=== PATIENT | female | born 1960 | race Caucasian/White ===

== ENCOUNTER 2019-11-22 07:07 | Outpatient (CLI) | payer OTHER, SELFPAY ==
[2019-11-22 08:03] LABS: Hematocrit 46.3 % (37.0-47.0); Hemoglobin 14.8 g/dL (12.0-15.0); Mean Corpuscular Hemoglobin 28.3 pg (26-34); Mean Corpuscular Volume 88.5 fl (80-100); Mean Platelet Volume 10.5 fl (7.4-10.4); Platelet Count Result 299 k/mm3 (150-375); Red Blood Count 5.23 M/mm3 (4.2-5.4); Red Cell Distribution Width 12.9 % (11.5-14.5); White Blood Count 8.5 K/mm3 (4.5-10.0)
[2019-11-22 08:18] LABS: Alanine Aminotransferase 24 U/L (4-35); Albumin Level 4.3 g/dL (3.5-5.1); Alkaline Phosphatase 94 U/L (38-126); Aspartate Amino Transferase 25 U/L (14-36); Bilirubin,Total 0.6 mg/dL (0.2-1.3); Blood Urea Nitrogen 14 mg/dL (7-17); Calcium 9.4 mg/dL (8.4-10.2); Carbon Dioxide 25 mmol/L (22-30); Chloride 104 mmol/L (98-107); Cholesterol 236 mg/dL (0-200); Estimated Glomerular Filt Rate > 60; Glucose 84 mg/dL (65-105); HDL Direct 46 mg/dL; Sodium 143 mmol/L (137-145); Triglycerides 161 mg/dL (<150)
[2019-11-22 08:25] LABS: Free T4 Free Thyroxine 0.91 ng/mL (0.78-2.19); Vitamin D 25 Hydroxy 38.8 ng/mL
[2019-11-22 08:29] LABS: LDL Cholesterol Direct 170 mg/dL
== END 2019-11-22 07:08 | disposition home or self-care (01) ==
PROVIDERS: PCP Family Medicine; Visit Provider Family Medicine
DX: E78.5 Hyperlipidemia, unspecified (principal); E55.9 Vitamin D deficiency, unspecified; R00.2 Palpitations
CPT/HCPCS: 36415; 80053; 80061; 82306; 84439; 84443; 85027

== ENCOUNTER 2020-06-17 06:55 | Outpatient (CLI) | payer BC, SELFPAY ==
[2020-06-17 07:28] LABS: Alanine Aminotransferase 30 U/L (4-35); Albumin Level 4.3 g/dL (3.5-5.1); Alkaline Phosphatase 91 U/L (38-126); Anion Gap 8 mmol/L (8-16); Aspartate Amino Transferase 26 U/L (14-36); Bilirubin,Total 0.5 mg/dL (0.2-1.3); Blood Urea Nitrogen 13 mg/dL (7-17); Calcium 9.3 mg/dL (8.4-10.2); Carbon Dioxide 24 mmol/L (22-30); Chloride 106 mmol/L (98-107); Cholesterol 223 mg/dL (0-200); Estimated Glomerular Filt Rate > 60; Glucose 101 mg/dL (65-105); HDL Direct 39 mg/dL; Sodium 138 mmol/L (137-145); Triglycerides 169 mg/dL (<150)
[2020-06-17 07:39] LABS: LDL Cholesterol Direct 150 mg/dL
[2020-06-17 08:06] LABS: Potassium 4.3 mmol/L (3.4-5.0)
[2020-06-17 08:10] LABS: Vitamin D 25 Hydroxy 39.4 ng/mL
== END 2020-06-17 06:56 | disposition home or self-care (01) ==
PROVIDERS: PCP Family Medicine; Visit Provider Family Medicine
DX: G62.9 Polyneuropathy, unspecified (principal); R00.2 Palpitations; E78.2 Mixed hyperlipidemia; E55.9 Vitamin D deficiency, unspecified
CPT/HCPCS: 36415; 80053; 80061; 82306; 82607; 84443

== ENCOUNTER 2020-12-22 06:45 | Outpatient (CLI) | payer BC, SELFPAY ==
[2020-12-22 07:46] LABS: Alanine Aminotransferase 31 U/L (4-35); Albumin Level 4.6 g/dL (3.5-5.1); Alkaline Phosphatase 101 U/L (38-126); Anion Gap 9 mmol/L (8-16); Aspartate Amino Transferase 30 U/L (14-36); Bilirubin,Total 0.7 mg/dL (0.2-1.3); Blood Urea Nitrogen 15 mg/dL (7-17); Calcium 9.7 mg/dL (8.4-10.2); Carbon Dioxide 27 mmol/L (22-30); Chloride 105 mmol/L (98-107); Cholesterol 221 mg/dL (0-200); Estimated Glomerular Filt Rate > 60; Glucose 95 mg/dL (65-105); HDL Direct 43 mg/dL; Sodium 141 mmol/L (137-145); Triglycerides 180 mg/dL (<150)
[2020-12-22 07:57] LABS: LDL Cholesterol Direct 146 mg/dL
== END 2020-12-22 06:46 | disposition home or self-care (01) ==
PROVIDERS: PCP Family Medicine; Visit Provider Family Medicine
DX: Z00.00 Encounter for general adult medical examination without abnormal findings (principal)
CPT/HCPCS: 36415; 80053; 80061

== ENCOUNTER → 2021-03-19 06:32 | Outpatient (CLI) | payer BC, SELFPAY ==
[2021-03-19 18:47] LABS: SARS-CoV-2 RNA PCR Negative
== END ==
PROVIDERS: PCP Family Medicine; Visit Provider Physician Assistant
DX: R05 Cough (principal); Z20.822 Contact with and (suspected) exposure to COVID-19
CPT/HCPCS: C9803; U0003; U0005

== ENCOUNTER 2021-07-03 07:17 | Outpatient (CLI) | payer BC, SELFPAY ==
[2021-07-03 08:02] LABS: Hemoglobin 15.3 g/dL (12.0-15.0); Mean Corpuscular HGB Conc 33.3 g/dl (32-36); Mean Corpuscular Hemoglobin 29.4 pg (26-34); Mean Corpuscular Volume 88.5 fl (80-100); Mean Platelet Volume 10.3 fl (7.4-10.4); Platelet Count Result 296 k/mm3 (150-375); Red Cell Distribution Width 13.2 % (11.5-14.5); White Blood Count 7.9 K/mm3 (4.5-10.0)
[2021-07-03 08:15] LABS: Alanine Aminotransferase 24 U/L (4-35); Albumin Level 4.7 g/dL (3.5-5.1); Alkaline Phosphatase 109 U/L (38-126); Anion Gap 9 mmol/L (8-16); Aspartate Amino Transferase 27 U/L (14-36); Bilirubin,Total 0.4 mg/dL (0.2-1.3); Blood Urea Nitrogen 12 mg/dL (7-17); Calcium 9.3 mg/dL (8.4-10.2); Carbon Dioxide 24 mmol/L (22-30); Chloride 108 mmol/L (98-107); Cholesterol 214 mg/dL (0-200); Estimated Glomerular Filt Rate > 60; Glucose 89 mg/dL (65-110); HDL Direct 51 mg/dL; Potassium 4.1 mmol/L (3.4-5.0); Sodium 141 mmol/L (137-145); Triglycerides 124 mg/dL (<150)
[2021-07-03 08:26] LABS: LDL Cholesterol Direct 132 mg/dL
[2021-07-03 08:45] LABS: Vitamin D 25 Hydroxy 48.8 ng/mL
== END 2021-07-03 07:18 | disposition home or self-care (01) ==
PROVIDERS: PCP Family Medicine; Visit Provider Family Medicine
DX: E55.9 Vitamin D deficiency, unspecified (principal); I10 Essential (primary) hypertension; R53.83 Other fatigue; E78.2 Mixed hyperlipidemia
CPT/HCPCS: 36415; 80053; 80061; 82306; 84443; 85027

== ENCOUNTER 2022-01-26 07:22 | Outpatient (CLI) | payer BC, SELFPAY ==
[2022-01-26 08:02] LABS: Hematocrit 46.2 % (37.0-47.0); Hemoglobin 14.9 g/dL (12.0-15.0); Mean Corpuscular HGB Conc 32.3 g/dl (32-36); Mean Corpuscular Hemoglobin 29.3 pg (26-34); Mean Corpuscular Volume 90.9 fl (80-100); Mean Platelet Volume 9.8 fl (7.4-10.4); Platelet Count Result 282 k/mm3 (150-375); Red Blood Count 5.08 M/mm3 (4.2-5.4); Red Cell Distribution Width 12.5 % (11.5-14.5); White Blood Count 8.3 K/mm3 (4.5-10.0)
[2022-01-26 08:16] LABS: Alanine Aminotransferase 19 U/L (4-35); Albumin Level 4.5 g/dL (3.5-5.1); Alkaline Phosphatase 108 U/L (38-126); Anion Gap 8 mmol/L (8-16); Aspartate Amino Transferase 23 U/L (14-36); Bilirubin,Total 0.3 mg/dL (0.2-1.3); Blood Urea Nitrogen 13 mg/dL (7-17); Calcium 8.9 mg/dL (8.4-10.2); Carbon Dioxide 26 mmol/L (22-30); Chloride 107 mmol/L (98-107); Cholesterol 236 mg/dL (0-200); Estimated Glomerular Filt Rate > 60; Glucose 86 mg/dL (65-110); HDL Direct 52 mg/dL; Potassium 4.2 mmol/L (3.4-5.0); Sodium 141 mmol/L (137-145); Triglycerides 148 mg/dL (<150)
[2022-01-26 08:26] LABS: LDL Cholesterol Direct 133 mg/dL
[2022-01-26 08:33] LABS: Vitamin D 25 Hydroxy 49.9 ng/mL
== END 2022-01-26 07:23 | disposition home or self-care (01) ==
LOC: ANHLAB 07:23
PROVIDERS: PCP Family Medicine; Visit Provider Family Medicine
DX: E55.9 Vitamin D deficiency, unspecified (principal); R53.83 Other fatigue; I10 Essential (primary) hypertension; E78.2 Mixed hyperlipidemia; E03.9 Hypothyroidism, unspecified
CPT/HCPCS: 36415; 80053; 80061; 82306; 84443; 85027

== ENCOUNTER 2022-03-25 11:01 | Outpatient (CLI) | payer BC, SELFPAY ==
--- NOTE | ~2022-03-25 | XR_ITS ---
XR hand LT min 3V DATE: 03/25/2022 11:26 INDICATION: Pain, trigger thumb TECHNIQUE: 3 views COMPARISON: left hand FINDINGS: There is moderate osteoarthritis at the first carpometacarpal joint. There is mild osteoart hritis at the second metacarpophalangeal joint and multiple interphalangeal joints. No fracture, dislocation, periosteal reaction or bone destruction. No erosive change. IMPRESSION: Mild polyarticular osteoarthritis Reviewed, dictated and finalized at location A.
[2022-03-25 12:11] LABS: Rheumatoid Factor < 8.6 IU/ML (<12)
[2022-03-25 13:11] LABS: Erythrocyte Sedimentation Rate 13 mm/hr (0-20)
== END 2022-03-25 11:02 | disposition home or self-care (01) ==
LOC: ANHLAB 11:04
PROVIDERS: PCP Family Medicine; Visit Provider Physician Assistant
DX: M25.50 Pain in unspecified joint (principal); M19.042 Primary osteoarthritis, left hand
CPT/HCPCS: 36415; 73130; 85652; 86430

== ENCOUNTER 2022-07-14 06:43 | Outpatient (CLI) | payer BC, SELFPAY ==
[2022-07-14 08:02] LABS: Alanine Aminotransferase 27 U/L (6-35); Albumin Level 4.7 g/dL (3.5-5.1); Alkaline Phosphatase 115 U/L (38-126); Anion Gap 11 mmol/L (8-16); Aspartate Amino Transferase 24 U/L (14-36); Bilirubin,Total 0.3 mg/dL (0.2-1.3); Blood Urea Nitrogen 16 mg/dL (7-17); Calcium 9.3 mg/dL (8.4-10.2); Carbon Dioxide 25 mmol/L (22-30); Chloride 106 mmol/L (98-107); Cholesterol 251 mg/dL (0-200); Estimated Glomerular Filt Rate > 60; Glucose 94 mg/dL (65-110); HDL Direct 52 mg/dL; Potassium 4.1 mmol/L (3.4-5.0); Sodium 142 mmol/L (137-145); Triglycerides 197 mg/dL (<150)
[2022-07-14 08:13] LABS: LDL Cholesterol Direct 151 mg/dL
== END 2022-07-14 06:44 | disposition home or self-care (01) ==
LOC: ANHLAB 06:45
PROVIDERS: PCP Family Medicine; Visit Provider Physician Assistant
DX: Z13.220 Encounter for screening for lipoid disorders (principal); Z13.1 Encounter for screening for diabetes mellitus
CPT/HCPCS: 36415; 80053; 80061

== ENCOUNTER 2023-02-15 07:01 | Outpatient (CLI) | payer BC, SELFPAY ==
[2023-02-15 09:10] LABS: Basophils Percent Auto 0.5 % (0.2-1.2); Eosinophils Absolute Auto 0.1 K/mm3 (0-0.3); Eosinophils Percent Auto 1.1 % (0-4.4); Hematocrit 45.9 % (37.0-47.0); Hemoglobin 14.9 g/dL (12.0-15.0); Immature Granulocyte Absolute 0.03 K/mm3 (0.00-0.031); Immature Granulocyte Percent A 0.4 % (0-0.5); Lymphocytes Absolute Auto 2.38 K/mm3 (0.9-3.2); Lymphocytes Percent Auto 28.1 % (18.3-44.2); Mean Corpuscular HGB Conc 32.5 g/dl (32-36); Mean Corpuscular Hemoglobin 28.8 pg (26-34); Mean Corpuscular Volume 88.8 fl (80-100); Mean Platelet Volume 10.3 fl (7.4-10.4); Monocytes Absolute Auto 0.5 K/mm3 (0.1-0.6); Monocytes Percent Auto 5.7 % (2.6-8.5); Neutrophils Absolute Auto 5.5 K/mm3 (1.3-6.7); Neutrophils Percent Auto 64.2 % (45.5-73.1); Platelet Count Result 283 k/mm3 (150-375); Red Blood Count 5.17 M/mm3 (4.2-5.4); Red Cell Distribution Width 12.4 % (11.5-14.5); White Blood Count 8.5 K/mm3 (4.5-10.0)
[2023-02-15 09:24] LABS: Alanine Aminotransferase 28 U/L (6-35); Albumin Level 4.5 g/dL (3.5-5.1); Alkaline Phosphatase 113 U/L (38-126); Anion Gap 9 mmol/L (8-16); Aspartate Amino Transferase 27 U/L (14-36); Bilirubin,Total 0.4 mg/dL (0.2-1.3); Blood Urea Nitrogen 15 mg/dL (7-17); Calcium 9.1 mg/dL (8.4-10.2); Carbon Dioxide 27 mmol/L (22-30); Chloride 104 mmol/L (98-107); Cholesterol 259 mg/dL (0-200); Estimated Glomerular Filt Rate > 60; Glucose 82 mg/dL (65-110); HDL Direct 53 mg/dL; Potassium 3.9 mmol/L (3.4-5.0); Sodium 140 mmol/L (137-145); Triglycerides 140 mg/dL (<150)
[2023-02-15 09:35] LABS: LDL Cholesterol Direct 174 mg/dL
[2023-02-15 09:43] LABS: Vitamin D 25 Hydroxy 31.9 ng/mL
== END 2023-02-15 07:02 | disposition home or self-care (01) ==
LOC: ANHLAB 07:03
PROVIDERS: PCP Family Medicine; Visit Provider Family Medicine
DX: Z00.00 Encounter for general adult medical examination without abnormal findings (principal); R53.83 Other fatigue; E78.2 Mixed hyperlipidemia; I10 Essential (primary) hypertension; E55.9 Vitamin D deficiency, unspecified
CPT/HCPCS: 36415; 80053; 80061; 82306; 84443; 85025

== ENCOUNTER 2023-08-09 06:56 | Outpatient (CLI) | payer BC, SELFPAY ==
[2023-08-09 07:54] LABS: Hematocrit 48.2 % (37.0-47.0); Hemoglobin 15.3 g/dL (12.0-15.0); Mean Corpuscular HGB Conc 31.7 g/dl (32-36); Mean Corpuscular Hemoglobin 28.4 pg (26-34); Mean Corpuscular Volume 89.6 fl (80-100); Mean Platelet Volume 10.2 fl (7.4-10.4); Platelet Count Result 289 k/mm3 (150-375); Red Blood Count 5.38 M/mm3 (4.2-5.4); Red Cell Distribution Width 12.9 % (11.5-14.5); White Blood Count 9.2 K/mm3 (4.5-10.0)
[2023-08-09 08:08] LABS: Alanine Aminotransferase 24 U/L (6-35); Albumin Level 4.5 g/dL (3.5-5.1); Alkaline Phosphatase 113 U/L (38-126); Anion Gap 9 mmol/L (8-16); Aspartate Amino Transferase 25 U/L (14-36); Bilirubin,Total 0.5 mg/dL (0.2-1.3); Blood Urea Nitrogen 13 mg/dL (7-17); Calcium 9.4 mg/dL (8.4-10.2); Carbon Dioxide 26 mmol/L (22-30); Chloride 105 mmol/L (98-107); Cholesterol 255 mg/dL (0-200); Estimated Glomerular Filt Rate > 60; Glucose 87 mg/dL (65-110); HDL Direct 49 mg/dL; Potassium 4.1 mmol/L (3.4-5.0); Sodium 140 mmol/L (137-145); Triglycerides 194 mg/dL (<150)
[2023-08-09 08:19] LABS: LDL Cholesterol Direct 158 mg/dL
[2023-08-09 13:24] LABS: Iron 122 ug/dL (37-170)
[2023-08-09 13:33] LABS: Percent Iron Saturation 33 % (20-50)
== END 2023-08-09 06:57 | disposition home or self-care (01) ==
LOC: ANHLAB 06:57
PROVIDERS: Physician Assistant; PCP Family Medicine; Visit Provider Family Medicine
DX: R53.83 Other fatigue (principal); I10 Essential (primary) hypertension; D75.1 Secondary polycythemia; E78.2 Mixed hyperlipidemia
CPT/HCPCS: 36415; 80053; 80061; 82728; 83540; 83550; 84443; 85027

== ENCOUNTER 2024-01-19 06:43 | Outpatient (CLI) | payer BC, SELFPAY ==
[2024-01-19 07:34] LABS: Basophils Percent Auto 0.4 % (0.2-1.2); Eosinophils Absolute Auto 0.2 K/mm3 (0-0.3); Eosinophils Percent Auto 1.6 % (0-4.4); Hematocrit 46.5 % (37.0-47.0); Hemoglobin 15.1 g/dL (12.0-15.0); Immature Granulocyte Absolute 0.03 K/mm3 (0.00-0.031); Immature Granulocyte Percent A 0.3 % (0-0.5); Lymphocytes Absolute Auto 2.22 K/mm3 (0.9-3.2); Lymphocytes Percent Auto 24.1 % (18.3-44.2); Mean Corpuscular HGB Conc 32.5 g/dl (32-36); Mean Corpuscular Hemoglobin 28.9 pg (26-34); Mean Corpuscular Volume 88.9 fl (80-100); Mean Platelet Volume 10.1 fl (7.4-10.4); Monocytes Absolute Auto 0.5 K/mm3 (0.1-0.6); Neutrophils Absolute Auto 6.3 K/mm3 (1.3-6.7); Neutrophils Percent Auto 68.6 % (45.5-73.1); Platelet Count Result 301 k/mm3 (150-375); Red Blood Count 5.23 M/mm3 (4.2-5.4); Red Cell Distribution Width 12.5 % (11.5-14.5); White Blood Count 9.2 K/mm3 (4.5-10.0)
[2024-01-19 07:42] LABS: Alanine Aminotransferase 21 U/L (6-35); Albumin Level 4.5 g/dL (3.5-5.1); Alkaline Phosphatase 113 U/L (38-126); Anion Gap 6 mmol/L (4-12); Aspartate Amino Transferase 21 U/L (14-36); Bilirubin,Total 0.4 mg/dL (0.2-1.3); Blood Urea Nitrogen 11 mg/dL (7-17); Calcium 9.3 mg/dL (8.4-10.2); Carbon Dioxide 26 mmol/L (22-30); Chloride 109 mmol/L (98-107); Cholesterol 209 mg/dL (0-200); Estimated Glomerular Filt Rate > 60; Glucose 98 mg/dL (65-110); HDL Direct 48 mg/dL; Sodium 141 mmol/L (137-145); Triglycerides 203 mg/dL (<150)
[2024-01-19 07:45] LABS: Iron 105 ug/dL (37-170)
[2024-01-19 07:54] LABS: LDL Cholesterol Direct 128 mg/dL
[2024-01-19 07:59] LABS: Percent Iron Saturation 30 % (20-50)
== END 2024-01-19 06:44 | disposition home or self-care (01) ==
LOC: ANHLAB 06:45
PROVIDERS: PCP Family Medicine; Visit Provider Family Medicine
DX: E78.2 Mixed hyperlipidemia (principal); I10 Essential (primary) hypertension; D58.2 Other hemoglobinopathies
CPT/HCPCS: 36415; 80053; 80061; 82728; 83540; 83550; 85025

== ENCOUNTER 2024-06-14 06:58 | Outpatient (CLI) | payer MEDICARE, SELFPAY ==
[2024-06-14 07:50] LABS: Basophils Percent Auto 0.5 % (0.2-1.2); Eosinophils Absolute Auto 0.1 K/mm3 (0-0.3); Eosinophils Percent Auto 1.3 % (0-4.4); Hematocrit 46.5 % (37.0-47.0); Hemoglobin 15.2 g/dL (12.0-15.0); Immature Granulocyte Absolute 0.03 K/mm3 (0.00-0.031); Immature Granulocyte Percent A 0.4 % (0-0.5); Lymphocytes Absolute Auto 2.17 K/mm3 (0.9-3.2); Lymphocytes Percent Auto 25.5 % (18.3-44.2); Mean Corpuscular HGB Conc 32.7 g/dl (32-36); Mean Corpuscular Hemoglobin 28.8 pg (26-34); Mean Corpuscular Volume 88.2 fl (80-100); Mean Platelet Volume 9.9 fl (7.4-10.4); Monocytes Absolute Auto 0.5 K/mm3 (0.1-0.6); Neutrophils Absolute Auto 5.6 K/mm3 (1.3-6.7); Neutrophils Percent Auto 66.3 % (45.5-73.1); Platelet Count Result 292 k/mm3 (150-375); Red Blood Count 5.27 M/mm3 (4.2-5.4); Red Cell Distribution Width 12.4 % (11.5-14.5); White Blood Count 8.5 K/mm3 (4.5-10.0)
[2024-06-14 08:38] LABS: Alanine Aminotransferase 22 U/L (6-35); Albumin Level 4.2 g/dL (3.5-5.1); Alkaline Phosphatase 103 U/L (38-126); Anion Gap 12 mmol/L (4-12); Aspartate Amino Transferase 24 U/L (14-36); Bilirubin,Total 0.3 mg/dL (0.2-1.3); Blood Urea Nitrogen 13 mg/dL (7-17); Calcium 8.8 mg/dL (8.4-10.2); Carbon Dioxide 24 mmol/L (22-30); Chloride 103 mmol/L (98-107); Cholesterol 218 mg/dL (0-200); Estimated Glomerular Filt Rate > 60; Glucose 83 mg/dL (65-110); HDL Direct 44 mg/dL; LDL Cholesterol Direct 135 mg/dL; Sodium 139 mmol/L (137-145); Triglycerides 205 mg/dL (<150)
== END 2024-06-14 06:59 | disposition home or self-care (01) ==
LOC: ANHLAB 07:07
PROVIDERS: PCP Family Medicine; Visit Provider Family Medicine
DX: R71.8 Other abnormality of red blood cells (principal); E78.2 Mixed hyperlipidemia; I10 Essential (primary) hypertension
CPT/HCPCS: 36415; 80053; 80061; 85025

== ENCOUNTER → 2024-08-06 09:06 | Outpatient (REF) | payer MEDICARE, SELFPAY | LOC: ANHLAB 09:06 | PROVIDERS: PCP Family Medicine; Visit Provider Plastic Surgery | DX: D48.5 Neoplasm of uncertain behavior of skin (principal) | CPT/HCPCS: 88305 ==

== ENCOUNTER 2025-02-26 06:53 | Outpatient (CLI) | payer MEDICARE, SELFPAY ==
--- OUTSIDE RECORDS SUMMARY | 2025-02-26 06:56 | XMS_ITS | Continuity of Care Document ---
Author Organization [employer] [place] Address [address] [facility] [address] [place] [address] Phone Care Team Providers Care Obstetrics Specialist Name Role Phone Xander Sanchez Unavailable Unavailable Procedures Procedure Date Progress Note Therapeutic Activities Neuromuscular Re-Ed Therapeutic Exercise Therapeutic Activities Neuromuscular Re-Ed Therapeutic Exercise Therapeutic Activities Neuromuscular Re-Ed Therapeutic Exercise Manual Therapy Hot or Cold Pack Electrical Stimulation Therapeutic Activities Neuromuscular Re-Ed Therapeutic Exercise Therapeutic Activities Neuromuscular Re-Ed Therapeutic Exercise Doc neg elder mal no plan PT Evaluation Moderate Complexity Therapeutic Activities Neuromuscular Re-Ed Therapeutic Exercise Therapeutic Activities Neuromuscular Re-Ed Therapeutic Exercise Manual Therapy Hot or Cold Pack Electrical Stimulation Therapeutic Activities Neuromuscular Re-Ed Therapeutic Exercise Manual Therapy Hot or Cold Pack Neuromuscular Re-Ed Therapeutic Exercise Hot or Cold Pack Manual Therapy Hot or Cold Pack Therapeutic Exercise Neuromuscular Re-Ed Therapeutic Activities Electrical Stimulation Neuromuscular Re-Ed Therapeutic Activities PT Evaluation Low Complexity Therapeutic Exercise Advance Directives Directive Yes / No Effective Date File Name No Information Encounters Encounter Description Practice Location Reason(s) For Visit Diagnoses Date Provider Providers Copied on Encounter [address], [id number], tel:[phone] [place] No Information 4 Muehl Xander. [address] [facility], [facility] [address] [address], . tel: [phone] [address], [id number], tel:[phone] [place] No Information 4 Muehl Xander. [address] [facility], [address] [address], [place]. tel:[phone] Referring Provider: Karel Madrid, [facility] [address] [place] [address], [facility]. tel:[phone] [address], [place], [id number], tel:[phone] [place] No Information 4 Muehl Xander. [address] [facility], [address], [place], [facility], . tel:[phone] Referring Provider: Karel Madrid, [facility] [address] [place] [address] [place] [address], [facility]. tel:[phone] [address], [place], [id number], tel:[phone] [place] No Information 4 Muehl Xander. [address] [facility], [address], . tel:[phone] Referring Provider: Karel Madrid, [facility] [address] [place] [address] [place] [address], [address]. tel:[phone] [address] [place] [address], [id number], tel:[phone] [place] No Information 0 4 Santi Terrell. [address] [place] [address], [address], [place], [facility], . tel:[phone] Referring Provider: Karel Madrid, [facility] [address] [place] [address] [place] [address], [facility]. tel:[phone] [address], [id number], tel:[phone] [place] No Information 3 Santi Terrell. [address] [place] [address], [address], [place], [facility], . [phone] Referring Provider: Karel Madrid, [facility] [address] [place] [address] Suite [facility], [place], [address]. tel:[phone] [address], [id number], tel:[phone] [place] No Information 3 Santi Terrell. [address] [place] [address], [address], [place], [facility], . tel:[phone] Referring Provider: Karel Madrid, [facility] [address] [place] [address] [address], [address]. tel:[phone] [address] [place] [address], [id number], tel:[phone] [place] No Information 2 0 Jose G Rainey. . Referring Provider: Melodie Santos, [address] , [place], [address]. tel:[phone] [address], [id number], tel:[phone] [place] No Information 0 Muehl Xander. [address] [place] [address], [address], [place], [facility], . tel:[phone] Referring Provider: [address], [place], [address]. tel:[phone] [address] [place] [address], [id number], tel:[phone] [place] No Information 0 Muehl Xander. [address] [place] [address], [address], [place], [facility], . [phone] Referring Provider: [address], [place], [address]. tel:[phone] [address] [place] [address] [place] [address], [id number], tel:[phone] [place] No Information 0 Jose G Rainey. . Referring Provider: [address], [place], [address]. tel:[phone] [address] [place] [address], [id number], tel:[phone] [place] No Information 0 Jose G Rainey. . Referring Provider: [address], [place], [address]. tel:[phone] Family History Family Member Type Diagnosis Age At Onset No Information Payers Payer name Insurance type Covered alliance party ID John elder(s) [facility] [id number] Social History Type Description Quantity Date Captured Comments Sex Female Smoking Status No Information Chief Complaint And Reason For Visit No Information Reason For Referral Reason For Referral No Information Plan Of Treatment Date Type Action Status Referral Ordered: Weight management: Patient referral to PCP timeframe: 1 Month. (related to Overweight) ordered Referral Ordered: Weight management: Referral to physician timeframe: 1 Month (related to Overweight) ordered Referral Ordered: PCP timeframe: 1 week. (related to Overweight) ordered Referral Ordered: PCP timeframe: 1 week. (related to Overweight) ordered Referral Ordered: Weight management: Patient referral to PCP timeframe: 1 Month. (related to Overweight) ordered History Of Present Illness Encounter Date Complaint History Of Prese nt Illness No Information Functional Status Date Functional Assessmen t No Information Instructions Date Instruction Additional Infor mation Prescribed activity/exercise edu cation Related to Overweight Dietary needs education Related to Overweight Assessments Type Assessment Date No Information Patient Care Teams Name Effective Dates (start - stop) Status Members No Information
--- OUTSIDE RECORDS SUMMARY | 2025-02-26 06:57 | XMS_ITS | Referral Summary ---
Author Organization [facility] Address [address] [place] [address] Care Team Providers Care Ammunition Officer Name Role Phone Melodie Santos MD Primary Care Provider [phone] Allergies Active Allergy Reactions Criticality Noted Date Comments Lorazepam Other (See comments) Low 03/11/2021 Adverse reaction Ciprofloxacin Other (See comments) Low 03/11/2021 Adverse reaction Ciprofloxacin Hcl Other (See comments) Low 03/11/20 Adverse reaction Duloxetine Other (See comments) Low 03/11/2021 Adverse reaction Nifedipine Headache Low 04/20/2023 Penicillins Other (See comments) Low 03/11/2021 Mouth swelling Spironolactone Palpitations Low 03/11/2021 Rapid heartbeat, throwing up, headache, & nausea Medications dilTIAZem (CARDIZEM) 30 mg tablet Take 1 tablet (30 mg total) by mouth 3 (three) times a day 1 Active diazePAM (VALIUM) 5 mg tablet TAKE 1 TABLET BY MOUTH ONCE DAILY NEEDED FOR ANXIETY 1 Active montelukast (SINGULAIR) 10 mg tablet Take 1 tablet (10 mg total) by mouth daily 1 Active pravastatin (PRAVACHOL) 10 mg tablet Take 1 tablet (10 mg total) by mouth daily 1 Active CHOLECALCIFEROL , VITAMIN D3, ORAL Take 2,000 Units by mouth once a week Active cyanocobalamin (Vitamin B-12) 1,000 mcg tabletIndicatio ns:Prevention of Vitamin B12 Deficiency Take 1 tablet (1,000 mcg total) by mouth daily Active pyridoxine (VITAMIN B-6) 100 mg tablet Take 1 tablet (100 mg total) by mouth daily Active gabapentin (NEURONTIN) 300 mg capsule Take 1 capsule (300 mg total) by mouth director of dietary before breakfast 30 capsule 11 3 Active carBAMazepine ER (CARBATROL) 100 mg 12 hr capsule Take 1 capsule (100 mg total) by mouth 2 (two) times a day 60 capsule 11 3 Active Active Problems Problem Noted Date Diagnosed Date Trigeminal neuralgia 03/11/2021 Immunizations Immunization Administration Dates Next Due Pfizer SARS-CoV-2 Monovalent Vaccination (12+ Yrs) -READY TO USE 12/29/2021 Social History Tobacco Use Types Packs/Day Years Used Date Smoking Tobacco: Never Smokeless Tobacco: Never Tobacco Cessation:Counseling Given: Not Answered AUDIT-C Answer Date Recorded Q1: How often do you have a drink containing alc ohol? Monthly or less 03/11/2021 Average Number of Drinks Not on file 021 Frequency of Binge Drinking Not on file 03/02 Personal Safety Answer Date Recorded Getting School Help Needed Not on file 09/16 Comments Unknown Sex and Gender Information Value Date Recorded Sex Assigned at Not on file Legal Sex Female 12:18 AM MORTGAGE CLOSING CLERK Gender Identity Female 08/09/2021 11:03 AM MORTGAGE CLOSING CLERK Sexual Orientation Straight 08/09/2021 11 :03 AM MORTGAGE CLOSING CLERK Last Filed Vital Signs Vital Sign Reading Time Taken Comments Blood Pressure 137/71 04/19/2024 11:39 AM CDT Pulse 61 04/19/2024 11:39 AM CDT Temperature 36.1 C (97 F) 03/11/2021 9:52 AM CDT Respiratory Rate - - Oxygen Saturation 97% 04/19/2024 11:39 AM CDT Inhaled Oxygen Concentration - - Weight 80.7 kg (178 lb) 04/19/2024 11:39 AM CDT Height 157.5 cm (5' 2) 04/19/2024 11:39 AM CDT Body Mass Index 32.56 04/19/2024 11:39 AM CDT Plan of Treatment Not on file Insurance [place] [id number] [facility] [place] [place] [id number] [place] Advance Directives For more information, please contact: [phone] Documents on File Type Date Recorded Patient Pinion Polisher Expl anation Power of Agricultural Aircraft Pilot 04/20/2022 10:36 AM Care Teams Ammunition Officer Relationship Specialty Start Date End Date Melodie Santos MD PCP - General Family Medicine 12/27/19
--- OUTSIDE RECORDS SUMMARY | 2025-02-26 06:57 | XMS_ITS | Clinical Summary ---
Author Organization [facility] Address [address] [place] [address] Care Team Providers Care Flour Worker Name Role Phone Melodie Santos MD Primary Care Provider [phone] Allergies Active Allergy Reactions Criticality Noted Date [...] 1 capsule (300 mg total) by mouth replanting machine operator before breakfast 30 capsule 11 3 Active carBAMazepine ER (CARBATROL) 100 mg 12 hr capsule Take 1 capsule (100 mg total) by mouth 2 (two) times a day 60 capsule 11 3 Active Active Problems Problem Noted Date Diagnosed Date Trigeminal neuralgia 03/11/2021 Immunizations Immunization Administration Dates Next Due Pfizer SARS-CoV-2 Monovalent Vaccination (12+ Yrs) -READY TO USE 12/29/2021 Surgical History Surgery Date Site/Laterality Comments CHOLECYSTECTOMY HYSTERECTOMY LAPAROSCOPY BLEPHAROPLASTY NEUROMA SURGERY THUMB SURGERY 12/30/2022 Left Medical History Medical History Date Comments Mitral valve prolapse Hyperlipidemia Asthma Irritable bowel syndrome Seizures (HCC) Mitral valve prolapse Neuroma MRSA infection Family History Medical History Relation Name Comments Testicular cancer Brother Kidney cancer Father Hypertension Mother Stroke Mother Asthma Sister Relation Name Status Comments Brother Father Mother Sister Social History Tobacco Use Types Packs/Day Years [...] on file Legal Sex Female 12:18 AM CUT OFF SAW SET UP OPERATOR Gender Identity Female 08/09/2021 11:03 AM CUT OFF SAW SET UP OPERATOR Sexual Orientation Straight 08/09/2021 11 :03 AM CUT OFF SAW SET UP OPERATOR Obstetrics History Last Filed Vital Signs Vital Sign Reading [...] 04/19/2024 11:39 AM CDT Plan of Treatment Health Maintenance Due Date Last Done Comments Breast Cancer Screening-Mammogram 1959 Colon Cancer Screening-Colonoscopy 1959 Depression Screening 1959 Fall Risk Assessment 1959 Hepatitis C Screening 1959 Osteoporosis Screening-Bone Density Scan 1959 DTaP/Tdap/Td Vaccine (1 - Tdap) 1970 Hepatitis B Screening 1977 Zoster Vaccine (1 of 2) 2009 Pneumococcal vaccine 65+ (2 of 2 - PPSV23) 10/12/2018 10/12/2017 Well Visit 65+ 2024 Covid-19 Vaccine ( season) 2024 12/29/2021, 12/25/2020, 11/27/2020 Influenza Vaccine (Season Ended) 2025 07/06/2020, 06/15/2017, 06/17/2016 Insurance November TASHI MCKEON [id number] [place] [id number] BLUE [facility] [place] Advance Directives For more information, please contact: [phone] Documents on File Type Date Recorded Patient Clothes Presser Expl anation Power of Informatics Educator 04/20/2022 10:36 AM Care Teams Flour Worker Relationship Specialty Start Date End Date Melodie Santos MD PCP - General Family Medicine 12/27/19
--- OUTSIDE RECORDS SUMMARY | 2025-02-26 06:57 | XMS_ITS | Patient Health Record ---
Author Organization [facility] Address [address] [place], [place] [address] Care Team Providers Care Dice Maker Name Role Phone JOSH DEE Unavailable [phone] Melodie Santos Unavailable Unavailable Allergies Allergen (clinical drug ingredient) Drug/Non Drug Allergy documented on EMR Reaction Allergy Type Onset Date Status lorazepam Ativan Unknown Drug Allergy Active duloxetine Cymbalta Unknown Drug Allergy Active ciprofloxacin Ciprofloxacin Unknown Drug Allergy Active nifedipine Nifedipine Unknown Drug Allergy Activ e Penicillin Unknown Drug Allergy Active spironolactone Spironolactone Unknown Drug Allergy Active Reason For Referral No Information Medications Medication SIG (Take, Route, Frequency, Duration) Notes Start Date End Date Status Montelukast Sodium 10 MG 1 tablet Orally Once a day Active Diltiazem CD Active carBAMazepine 100 MG 2 tablets Orally Tw ice a day Active Pravastatin Sodium 10 MG 2 tablets Orally Once a day Active diazePAM 5 MG 1 tablet as needed O rally Once a day Active Immunizations Vaccine Route Administration Date Status Comme nts Influenza, high dose seasonal Unknown 07/01/2023 Admini stered Social History Tobacco Use: Social History Observation Description Date Details (start date - stop date) Former Smoker NA - NA Tobacco Use/Smoking Question Answer Notes Tobacco use: former smoker Plan Of Treatment No Information Insurance Providers Payer Name Payer Address Payer Phone Subscriber Number Group Number Insured Name Patient Relationship to Insured Coverage Start Date Coverage End Date [facility] ([facility] ATTN CLAIMS [address] [place] [address] [id number] CHAD AGUIRRE Self - patient is the insured Medical (General) History Medical History History ICD Code artificial joint endometriosis Arthritis irritable bowel syndrome heart murmur asthma - mild intermittent MRSA fibromyalgia Surgical History Surgery Date(Month/Year) trigger finger release Hysterectomy laparotomy
[2025-02-26 07:47] LABS: Basophils Percent Auto 0.5 % (0.2-1.2); Eosinophils Absolute Auto 0.1 K/mm3 (0-0.3); Eosinophils Percent Auto 1.3 % (0-4.4); Hematocrit 47.1 % (37.0-47.0); Hemoglobin 15.6 g/dL (12.0-15.0); Immature Granulocyte Absolute 0.02 K/mm3 (0.00-0.031); Immature Granulocyte Percent A 0.3 % (0-0.5); Lymphocytes Absolute Auto 2.14 K/mm3 (0.9-3.2); Lymphocytes Percent Auto 27.4 % (18.3-44.2); Mean Corpuscular HGB Conc 33.1 g/dl (32-36); Mean Corpuscular Hemoglobin 28.8 pg (26-34); Mean Corpuscular Volume 86.9 fl (80-100); Mean Platelet Volume 10.4 fl (7.4-10.4); Monocytes Absolute Auto 0.4 K/mm3 (0.1-0.6); Monocytes Percent Auto 5.5 % (2.6-8.5); Neutrophils Absolute Auto 5.1 K/mm3 (1.3-6.7); Platelet Count Result 300 k/mm3 (150-375); Red Blood Count 5.42 M/mm3 (4.2-5.4); White Blood Count 7.8 K/mm3 (4.5-10.0)
[2025-02-26 08:02] LABS: Alanine Aminotransferase 39 U/L (6-35); Albumin Level 4.5 g/dL (3.5-5.1); Alkaline Phosphatase 132 U/L (38-126); Anion Gap 9 mmol/L (4-12); Aspartate Amino Transferase 36 U/L (14-36); Bilirubin,Total 0.4 mg/dL (0.2-1.3); Blood Urea Nitrogen 8 mg/dL (7-17); Calcium 9.6 mg/dL (8.4-10.2); Carbon Dioxide 25 mmol/L (22-30); Chloride 106 mmol/L (98-107); Cholesterol 231 mg/dL (0-200); Estimated Glomerular Filt Rate > 60; Glucose 89 mg/dL (65-110); HDL Direct 47 mg/dL; Sodium 140 mmol/L (137-145); Triglycerides 159 mg/dL (<150)
[2025-02-26 08:13] LABS: LDL Cholesterol Direct 124 mg/dL
[2025-02-26 09:34] LABS: Free T4 Free Thyroxine 0.91 ng/dL (0.78-2.19)
== END 2025-02-26 06:54 | disposition home or self-care (01) ==
PROVIDERS: PCP Family Medicine; Visit Provider Student in an Organized Health Care Education/Training Program
DX: E78.5 Hyperlipidemia, unspecified (principal); I10 Essential (primary) hypertension; F41.9 Anxiety disorder, unspecified; E55.9 Vitamin D deficiency, unspecified; R53.83 Other fatigue
CPT/HCPCS: 36415; 80053; 80061; 82306; 84439; 84443; 85025

== ENCOUNTER 2025-05-01 06:43 | Outpatient (CLI) | payer MEDICARE, SELFPAY ==
--- OUTSIDE RECORDS SUMMARY | 2025-05-01 06:46 | XMS_ITS | Clinical Summary ---
Author Organization [facility] Address [address] [place] [address] Care Team Providers Care Computer Forensics Analyst Name Role Phone Melodie Santos MD Primary Care Provider [phone] Social History Tobacco Use Types Packs/Day Years Used Date Smoking Tobacco: Never Assessed Comments Unknown Sex and Gender Information Value Date Recorded Sex Assigned at Not on file Legal Sex Female 7:14 PM CDT Gender Identity Not on file Sexual Orientation Not on file Plan of Treatment Health Maintenance Due Date Last Done Comments Colorectal Cancer Screening Colonoscopy (10 Years) 1959 Hepatitis C 1977 DTaP, Tdap and Td Vaccines ( 1 - Tdap) 1978 Mammogram Screening 1999 Pneumococcal Vaccine: 50+ Ye ars (1 of 1 - PCV) 2009 Zoster Vaccines (1 of 2) 2009 Dexa Scan (General) 2024 COVID-19 Vaccine ( - 2023-2 5 season) 2024 RSV Immunization or 60+ Years (1 - 1-dose 75+ series) 2034 Meningococcal B Vaccine Aged Out No l onger eligible based on patient's age to complete this topic Meningococcal Vaccine Aged Out No gerry pina eligible based on patient's age to complete this topic RSV Immunizations Under 20 Months Aged Out No longer eligible based on patient's age to complete this topic Additional Health Concerns Infection Onset Date Last Indicated MRSA 05/08/2017 05/08/2017 Care Teams Computer Forensics Analyst Relationship Specialty Start Date End Date Melodie Santos MD PCP - General 12/15/11
--- OUTSIDE RECORDS SUMMARY | 2025-05-01 06:46 | XMS_ITS | Patient Health Record ---
Author Organization [facility] Address [address] [place], [place] [address] Care Team Providers Care Wardrobe Specialty Worker Name Role Phone JOSH DEE Unavailable [phone] Melodie Santos Unavailable Unavailable Allergies Allergen (clinical drug ingredient) Drug/Non Drug Allergy documented on EMR Reaction Allergy Type Onset Date Status lorazepam Ativan Unknown Drug Allergy Active Cymbalta Unknown Drug Allergy Active ciprofloxacin Ciprofloxacin [...] Insured Coverage Start Date Coverage End Date [facility] ([facility]) ATTN CLAIMS [address] [place] [address] [id number] CARLACHAD SAUCEDA Self - patient is the insured Medical (General) History Medical History History ICD Code artificial joint endometriosis Arthritis irritable bowel syndrome heart murmur asthma - mild intermittent MRSA fibromyalgia Surgical History Surgery Date(Month/Year) trigger finger release Hysterectomy laparotomy
--- OUTSIDE RECORDS SUMMARY | 2025-05-01 06:46 | XMS_ITS | Referral Summary ---
Author Organization [facility] Address [address] [place] [address] Care Team Providers Care Barrel Marker Name Role Phone Melodie Santos MD Primary Care Provider [phone] Encounters Date Type Department Care Team Description 04/17/2025 2:00 PM CDT Office Visit [facility] [address] [place] [address] [address], [place] [address] Pawan Ramon, JACE Trigeminal neuralgia (Primary Dx); Seizures (HCC) from Last 3 Months Allergies Active Allergy Reactions Criticality Noted Date [...] 1 capsule (300 mg total) by mouth television maintenance man before breakfast 30 capsule 11 3 Active carBAMazepine ER (CARBATROL) 100 mg 12 hr capsule Take 1 capsule (100 mg total) by mouth 2 (two) times a day 60 capsule 3 Active Active Problems Problem Noted Date Diagnosed Date Trigeminal neuralgia 03/11/2021 Immunizations Immunization Administration Dates Next Due Agrican SARS-CoV-2 Monovalent Vaccination (12+ Yrs) -READY TO [...] of Binge Drinking Not on file 03/02 Comments Unknown Sex and Gender Information Value Date Recorded Sex Assigned at Not on file Legal Sex Female 12:18 AM PLASTICS FACTORY WORKER Gender Identity Female 08/09/2021 11:03 AM PLASTICS FACTORY WORKER Sexual Orientation Straight 08/09/2021 11 :03 AM PLASTICS FACTORY WORKER Last Filed Vital Signs Vital Sign Reading Time Taken Comments Blood Pressure 114/53 04/17/2025 1:56 PM CDT Pulse 69 04/17/2025 1:56 PM CDT Temperature 36.1 C (97 F) 03/11/2021 9:52 AM CDT Respiratory Rate - - Oxygen Saturation 99% 04/17/2025 1:56 PM CDT Inhaled Oxygen Concentration - - Weight 71.2 kg (157 lb) 04/17/2025 1:56 PM CDT Height 157.5 cm (5' 2) 04/17/2025 1:56 PM CDT Body Mass Index 28.72 04/17/2025 1:56 PM CDT Plan of Treatment Not [place] [id number] [place] [id number] BLUE [employer] Member Subscriber Plan / Payer (Ef fective 2020-Present) Name:Brigid Perez Relation to Subscriber:Self Name:Brigid Perez Payer ID:[id number] (NAIC) Type:[facility] Address: [address] [place]ICE [place] MEDICARE RAILROAD [facility] Advance Directives For more information, please contact: [phone] Documents on File Type Date Recorded Patient Lithograph Operator Expl anation Power of Solar Sales Advisor 04/20/2022 10:36 AM Care Teams Barrel Marker Relationship Specialty Start Date End Date Melodie Santos MD PCP - General Family Medicine 12/27/19
--- OUTSIDE RECORDS SUMMARY | 2025-05-01 06:46 | XMS_ITS | Clinical Summary ---
Author Organization [facility] Address [address] [place] [address] Care Team Providers Care Discharging Machine Operator Name Role Phone Melodie Santos MD Primary Care Provider [phone] Allergies Active Allergy Reactions Criticality Noted Date [...] 1 capsule (300 mg total) by mouth getter operator before breakfast 30 capsule 11 3 Active carBAMazepine ER (CARBATROL) 100 mg 12 hr capsule Take 1 capsule (100 mg total) by mouth 2 (two) times a day 60 capsule 11 3 Active Active Problems Problem Noted Date Diagnosed Date Trigeminal neuralgia 03/11/2021 Encounters Date Type Department Care Team Description 04/17/2025 2:00 PM CDT Office Visit [facility] [place] [place] [facility] [address] [place] [address] [address] [address] Pawan Ramon, JACE Trigeminal neuralgia (Primary Dx); Seizures (HCC) from Last 3 Months Immunizations Immunization Administration Dates Next Due Pfizer [...] on file Legal Sex Female 12:18 AM RESEARCH GREENHOUSE SUPERVISOR Gender Identity Female 08/09/2021 11:03 AM RESEARCH GREENHOUSE SUPERVISOR Sexual Orientation Straight 08/09/2021 11 :03 AM RESEARCH GREENHOUSE SUPERVISOR Obstetrics History Last Filed Vital Signs Vital [...] 04/17/2025 1:56 PM CDT Plan of Treatment Health Maintenance Due [...] 10/12/2017 Well Visit 65+ 2024 Covid-19 Vaccine (4 - 2023-2 5 season) 2024 12/29/2021, 12/25/2020, 11/27/2020 Influenza Vaccine (#1) 2025 , 07/06/2020, 06/15/2017, Additional history [place] [id number] CHOICE [facility] [place] TASH[place] MCKE[place] [id number] [place] [employer] [facility] [place]PO [place] TASH[place]KEON [id number] MEDICARE RAILROAD [facility] Advance Directives For more information, please contact: [phone] Documents on File Type Date Recorded Patient Veterinary Meat Inspector Expl anation Power of Minesweeping Officer 04/20/2022 10:36 AM Care Teams Discharging Machine Operator Relationship Specialty Start Date End Date Melodie Santos MD PCP - General Family Medicine 12/27/19
[2025-05-01 08:38] LABS: Iron 75 ug/dL (37-170)
[2025-05-01 08:45] LABS: Alanine Aminotransferase 26 U/L (6-35); Albumin Level 4.4 g/dL (3.5-5.1); Alkaline Phosphatase 115 U/L (38-126); Anion Gap 6 mmol/L (4-12); Aspartate Amino Transferase 32 U/L (14-36); Bilirubin,Total 0.6 mg/dL (0.2-1.3); Blood Urea Nitrogen 11 mg/dL (7-17); Calcium 9.5 mg/dL (8.4-10.2); Carbon Dioxide 23 mmol/L (22-30); Chloride 105 mmol/L (98-107); Estimated Glomerular Filt Rate > 60; Glucose 86 mg/dL (65-110); Potassium 4.0 mmol/L (3.4-5.0); Sodium 134 mmol/L (137-145); Total Protein 7.8 g/dL (6.3-8.2)
[2025-05-01 08:48] LABS: Percent Iron Saturation 20 % (20-50)
[2025-05-01 09:00] LABS: Free T4 Free Thyroxine 0.92 ng/dL (0.78-2.19)
[2025-05-01 09:19] LABS: Ferritin 56.00 ng/mL (11.1-264)
[2025-05-01 09:54] LABS: Vitamin B12 924.0 pg/mL (239-931)
== END 2025-05-01 06:44 | disposition home or self-care (01) ==
PROVIDERS: PCP Family Medicine; Visit Provider Student in an Organized Health Care Education/Training Program
DX: D58.2 Other hemoglobinopathies (principal); R53.83 Other fatigue; R74.8 Abnormal levels of other serum enzymes
CPT/HCPCS: 36415; 80053; 82607; 82728; 82746; 83540; 83550; 84439

== ENCOUNTER 2025-05-28 10:01 | Outpatient (CLI) | payer MEDICARE, SELFPAY ==
--- OUTSIDE RECORDS SUMMARY | 2025-05-28 10:25 | XMS_ITS | Clinical Summary ---
Author Organization [facility] Address [address] [place] [address] Care Team Providers Care Pension Consultant Name Role Phone Melodie Santos MD Primary Care Provider Social History Tobacco Use Types Packs/Day Years [...] Last Indicated MRSA 05/08/2017 05/08/2017 Care Teams Pension Consultant Relationship Specialty Start Date End Date Melodie Santos MD PCP - General 12/15/11
--- OUTSIDE RECORDS SUMMARY | 2025-05-28 10:25 | XMS_ITS | Clinical Summary ---
Author Organization [facility] Address [address] [place] [address] Care Team Providers Care Facility Coordinator Name Role Phone Melodie Santos MD Primary Care Provider [phone] Allergies Active Allergy Reactions Criticality Noted Date Comments Lorazepam Other (See comments) Low 03/11/2021 Adverse reaction Ciprofloxacin Other (See comments) Low 03/11/2021 Adverse reaction Ciprofloxacin Hcl Other (See comments) Low 03/11/20 21 Adverse reaction Duloxetine Other (See comments) Low 03/11/2021 Adverse reaction Nifedipine Headache Low 04/20/2023 Penicillins Other (See comments) Low 03/11/2021 Mouth swelling Spironolactone Palpitations Low 03/11/2021 Rapid heartbeat, throwing up, headache, & nausea Medications dilTIAZem (CARDIZEM) 30 mg tablet Take 1 tablet (30 mg total) by mouth 3 (three) times a day 02/12/20 21 Active diazePAM (VALIUM) 5 mg tablet TAKE 1 TABLET BY MOUTH ONCE DAILY NEEDED FOR ANXIETY 02/12/20 21 Active montelukast (SINGULAIR) 10 mg tablet Take 1 tablet (10 mg total) by mouth daily 02/12/20 21 Active pravastatin (PRAVACHOL) 10 mg tablet Take 1 tablet (10 mg total) by mouth daily 02/12/20 21 Active CHOLECALCIFERO L, VITAMIN D3, ORAL Take 2,000 Units by mouth once a week Active cyanocobalamin (Vitamin B-12) 1,000 mcg tabletIndicati ons:Prevention of Vitamin B12 Deficiency Take 1 tablet (1,000 mcg total) by mouth daily Active pyridoxine (VITAMIN B-6) 100 mg tablet Take 1 tablet (100 mg total) by mouth daily Active gabapentin (NEURONTIN) 300 mg capsule TAKE 1 CAPSULE BY MOUTH EVERY MORNING BEFORE BREAKFAST 30 capsule 05/19/20 25 Active carBAMazepine ER (CARBATROL) 100 mg 12 hr capsule Take 1 capsule (100 mg total) by mouth 2 (two) times a day 60 capsule 05/27/20 25 Active gabapentin (NEURONTIN) 300 mg capsule Take 1 capsule (300 mg total) by mouth patient support associate before breakfast 30 capsule 04/20/20 23 025 Discontinued carBAMazepine ER (CARBATROL) 100 mg 12 hr capsule Take 1 capsule (100 mg total) by mouth 2 (two) times a day 60 capsule 04/20/20 025 Discontinued(Re order) Active Problems Problem Noted Date Diagnosed Date Trigeminal neuralgia 03/11/2021 Encounters Date Type Department Care Team Description 05/27/2025 Telephone [facility] [address] [place] [address] [address] [place] [address] Lina Mcmahon MA 04/17/2025 2:00 PM CDT Office Visit [facility] [address] [place] [address] [address] [place] [phone] Pawan Ramon, JACE Trigeminal neuralgia (Primary Dx); [...] on file Legal Sex Female 12:18 AM [employer]ARD DANCE [employer] Gender Identity Female 08/09/2021 11:03 AM [employer] Sexual Orientation Straight 08/09/2021 11 :03 AM [employer] Obstetrics History Last Filed Vital Signs Vital [...] Pneumococcal vaccine 65+ (2 of 2 - PCV20 or PCV21) 10/12/2018 10/12/2017 Well Visit 65+ 2024 Covid-19 Vaccine (4 - 2023-2 5 season) 2024 12/29/2021, 12/25/2020, 11/27/2020 Influenza Vaccine (#1) 2025 3, 07/06/2020, 06/15/2017, Additional [place] [id number] [place] [employer] November [place] [id number] [facility] OOS Member Subscriber Plan / Payer (Ef fective 2020-Present) Name:Brigid Perez Relation to Subscriber:Self Name:Brigid Perez Payer ID:[id number] (NAIC) Type:[facility] Address: [address] [place] November [place] [id number] MEDICARE [employer] [facility] Advance Directives For more information, please contact: [phone] Documents on File Type Date Recorded Patient Individual Small Group Instructor Expl anation Power of Compensation And Benefits Analyst 04/20/2022 10:36 AM Care Teams Facility Coordinator Relationship Specialty Start Date End Date Melodie Santos MD PCP - General Family Medicine 12/27/19
--- OUTSIDE RECORDS SUMMARY | 2025-05-28 10:25 | XMS_ITS | Patient Health Record ---
Author Organization [facility] Address [address] [place], [place] [id number] Care Team Providers Care Novelty Worker Name Role Phone JOSH DEE Unavailable [phone] Melodie Santos Unavailable Unavailable Allergies Allergen (clinical [...] Insured Coverage Start Date Coverage End Date [facility] ([facility]) ATTN CLAIMS [address] [place] [address] [id number] CARLA CHAD Self - patient is the insured Medical (General) History Medical History History ICD Code artificial joint endometriosis Arthritis irritable bowel syndrome heart murmur asthma - mild intermittent MRSA fibromyalgia Surgical History Surgery Date(Month/Year) trigger finger release Hysterectomy laparotomy
--- OUTSIDE RECORDS SUMMARY | 2025-05-28 10:25 | XMS_ITS | Encounter Summary ---
Author Organization [facility] Address [address] [place] [address] Care Team Providers Care Resident Care Director Name Role Phone Melodie Santos MD Primary Care Provider [phone] Encounter Details Date Type Department Care Team (Late st Contact Info) Description 05/27/2025 Telephone [facility] [address] [place] [address] [address] [address] Lina Mcmahon MA Social History Tobacco Use Types Packs/Day Years Used Date Smoking Tobacco: Never Smokeless Tobacco: Never AUDIT-C Answer Date Recorded Q1: How often do you have a drink containing alc ohol? Monthly or less 03/11/2021 Average Number of Drinks Not on file 021 Frequency of Binge Drinking Not on file 03/02 Comments Unknown Sex and Gender Information Value Date Recorded Sex Assigned at Not on file Legal Sex Female 12:18 AM [employer]OMOTIVE METAL[employer] Gender Identity Female 08/09/2021 11:03 AM [employer]OM[employer] Sexual Orientation Straight 08/09/2021 11 :03 AM AUTOMOTIVE MET[employer] documented as of this encounter Miscellaneous Notes * Telephone Encounter - Lina Mcmahon MA - 05/27/2025 2:29 PM CDT Pt called stating needed refill for carbamazepine was sent to [facility] documented in this encounter Plan of Treatment Not on file documented as of this encounter Visit Diagnoses Not on filedocumented in this encounter Care Teams Resident Care Director Relationship Specialty Start Date End Date Melodie Santos MD PCP - General Family Medicine 12/27/19 documented as of this encounter
[2025-05-28 10:48] LABS: Anion Gap 9 mmol/L (4-12); Blood Urea Nitrogen 15 mg/dL (7-17); Calcium 9.3 mg/dL (8.4-10.2); Carbon Dioxide 23 mmol/L (22-30); Chloride 106 mmol/L (98-107); Estimated Glomerular Filt Rate > 60; Glucose 84 mg/dL (65-110); Potassium 4.1 mmol/L (3.4-5.0); Sodium 138 mmol/L (137-145)
== END 2025-05-28 10:02 | disposition home or self-care (01) ==
PROVIDERS: PCP Family Medicine; Visit Provider Student in an Organized Health Care Education/Training Program
DX: E87.1 Hypo-osmolality and hyponatremia (principal)
CPT/HCPCS: 36415; 80048